=== PATIENT | male | born 1950 | race African-American/Black ===

== ENCOUNTER 2016-09-19 11:03 | Inpatient (IN) | payer OTHER ==
[2016-09-19 14:04] VITALS: BMI 18.7
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
[2016-09-19] MEDS ORDERED: MAG HYDROX/AL HYDROX/SIMETH 30 ML UNIT-DOSE CUP PO PRN (15:03)
[2016-09-19] MEDS ORDERED: diphenhydrAMINE HCL 50 MG CAPSULE PO PRN (15:03)
[2016-09-19] MEDS ORDERED: guaiFENesin/D-METHORPHAN HB 10 ML UNIT-DOSE CUPS PO PRN (15:03)
[2016-09-19] MEDS ORDERED: MENTHOL/PHENOL 1 EACH UD MM PRN (15:03)
[2016-09-19] MEDS ORDERED: IBUPROFEN 400 MG TABLET (FP) PO PRN (15:03)
[2016-09-19] MEDS ORDERED: LOPERAMIDE HCL 2 MG CAPSULE PO PRN (15:03)
[2016-09-19] MEDS ORDERED: chlordiazePOXIDE HCL 25 MG CAPSULE PO ONE (15:03)
[2016-09-19] MEDS ORDERED: ACETAMINOPHEN 325 MG TABLET (FP) PO PRN (15:03)
[2016-09-19] MEDS ORDERED: MAGNESIUM CITRATE 300 ML BOTTLE PO PRN (15:03)
[2016-09-19] MEDS ORDERED: MAGNESIUM HYDROX 2400MG/30ML ORAL SUSPENSION 30 ML CUP PO PRN (15:03)
[2016-09-19] MEDS ORDERED: chlordiazePOXIDE HCL 25 MG CAPSULE PO PRN (15:03)
[2016-09-19] MEDS ORDERED: P-EPHED 60MG/TRIPROLIDI 2.5MG TABLET PO PRN (15:03)
[2016-09-19] MEDS ORDERED: NICOTINE POLACRILEX 2 MG GUM BC PRN (15:03)
[2016-09-19] MEDS ORDERED: hydrOXYzine PAMOATE 50 MG CAPSULE (FP) PO PRN (15:03)
[2016-09-19] MEDS: chlordiazePOXIDE HCL 25 MG CAPSULE PO SCH ×2 (17:09→22:35)
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
[2016-09-19 21:13] LABS: URINE APPEARANCE CLEAR; URINE BILIRUBIN NEGATIVE (NEGATIVE); URINE BLOOD NEGATIVE (NEGATIVE); URINE COLOR YELLOW; URINE GLUCOSE (UA) NEGATIVE (NEGATIVE); URINE KETONE NEGATIVE (NEGATIVE); URINE LEUK ESTERASE NEGATIVE (NEGATIVE); URINE NITRITE NEGATIVE (NEGATIVE); URINE PROTEIN NEGATIVE (NEGATIVE); URINE UROBILINOGEN NEGATIVE mg/dL (0.2-1.0)
[2016-09-19] MEDS: THIAMINE HCL 100 MG TABLET (FP) PO SCH (22:35)
[2016-09-19] MEDS: QUEtiapine FUMARATE 50 MG TABLET PO SCH (22:35)
[2016-09-20] MEDS: chlordiazePOXIDE HCL 25 MG CAPSULE PO SCH ×4 (06:29→22:46)
[2016-09-20 10:05] LABS: MCH 33.1 pg (25.7-33.7); MCHC 33.9 g/dl (32.0-35.9); MEAN CELL VOLUME 97.6 fl (80-96); MEAN PLT VOLUME 7.7 fl (7.5-11.1); PLATELET COUNT 279 K/MM3 (134-434); RDW 14.6 % (11.9-15.9); WHITE BLOOD COUNT 3.6 K/mm3 (4.0-10.0)
[2016-09-20 10:25] LABS: ALBUMIN 3.5 g/dl (3.4-5.0); ALK PHOS 72 U/L (45-117); ANION GAP 6 (8-16); BILIRUBIN,TOTAL 0.4 mg/dL (0.2-1.0); CALCIUM 8.9 mg/dL (8.5-10.1); CO2 31 mmol/L (21-32); CREATININE 1.3 mg/dL (0.7-1.3); GLUCOSE,RANDOM 106 mg/dL (74-106); SGOT/AST 15 U/L (15-37); SGPT/ALT 12 U/L (12-78); TOT PROT 7.2 g/dl (6.4-8.2)
[2016-09-20] MEDS: PRENATAL VITAMINS W/ FOLIC ACID TABLET (FP) PO SCH (10:57)
[2016-09-20] MEDS: FLUoxetine HCL 20 MG CAPSULE (FP) PO SCH (10:57)
[2016-09-20] MEDS: NICOTINE 21 MG/24 HOURS TOPICAL PATCH TD SCH (10:57)
[2016-09-20] MEDS: TAMSULOSIN HCL 0.4 MG CAP.ER.24H (FP) PO SCH (10:57)
--- NOTE | 2016-09-20 11:06 | PN ---
[facility] CIWA - CIWA Score Nausea/Vomitin-Mild Nausea/No Vomiting Muscle Tremors: 4-Moderate,w/Arms Extend Anxiety: 3 Agitation: 3 Paroxysmal Sweats: 3 Orientation: 0-Oriented Tacttile Disturbances: 0-None Auditory Disturbances: 0-None Visual Disturbances: 0-None Headache: 0-None Present CIWA-Ar Total Score: 14 S Progress Note (SOAP) Subjective: Anxiety,tremors,sweating,interrupted sleep,restless. Objective: 09/20/16 11:04 Vital Signs - 8 hr 09/20/16 09/20/16 09/20/16 04:18 07:43 09:23 Temperature 96.9 F L Pulse Rate 65 81 Respiratory 18 16 20 Rate Blood Pressure 122/75 125/88 Laboratory Last Values WBC 3.6 K/mm3 (4.0-10.0) L 09/20/16 06:00 RBC 4.32 M/mm3 (4.00-5.60) 09/20/16 06:00 Hgb 14.3 GM/dL (11.7-16.9) 09/20/16 06:00 Hct 42.1 % (35.4-49) 09/20/16 06:00 MCV 97.6 fl (80-96) H 09/20/16 06:00 MCH 33.1 pg (25.7-33.7) 09/20/16 06:00 MCHC 33.9 g/dl (32.0-35.9) 09/20/16 06:00 RDW 14.6 % (11.9-15.9) 09/20/16 06:00 Plt Count 279 K/MM3 (134-434) 09/20/16 06:00 MPV 7.7 fl (7.5-11.1) 09/20/16 06:00 Sodium 142 mmol/L (136-145) 09/20/16 06:00 Potassium 3.7 mmol/L (3.5-5.1) 09/20/16 06:00 Chloride 105 mmol/L (98-107) 09/20/16 06:00 Carbon Dioxide 31 mmol/L (21-32) 09/20/16 06:00 Anion Gap 6 (8-16) L 09/20/16 06:00 BUN 11 mg/dL (7-18) 09/20/16 06:00 Creatinine 1.3 mg/dL (0.7-1.3) 09/20/16 06:00 Creat Clearance w eGFR 55.40 (>60) 09/20/16 06:00 Random Glucose 106 mg/dL (74-106) 09/20/16 06:00 Calcium 8.9 mg/dL (8.5-10.1) 09/20/16 06:00 Total Bilirubin 0.4 mg/dL (0.2-1.0) 09/20/16 06:00 AST 15 U/L (15-37) 09/20/16 06:00 ALT 12 U/L (12-78) 09/20/16 06:00 Alkaline Phosphatase 72 U/L (45-117) 09/20/16 06:00 Total Protein 7.2 g/dl (6.4-8.2) 09/20/16 06:00 Albumin 3.5 g/dl (3.4-5.0) 09/20/16 06:00 Urine Color Yellow 09/19/16 16:59 Urine Appearance Clear 09/19/16 16:59 Urine pH 5.0 (5.0-8.0) 09/19/16 16:59 Ur Specific [place] 1.015 (1.005-1.025) 09/19/16 16:59 Urine Protein Negative (NEGATIVE) 09/19/16 16:59 Urine Glucose (UA) Negative (NEGATIVE) 09/19/16 16:59 Urine Ketones Negative (NEGATIVE) 09/19/16 16:59 Urine Blood Negative (NEGATIVE) 09/19/16 16:59 Urine Nitrite Negative (NEGATIVE) 09/19/16 16:59 Urine Bilirubin Negative (NEGATIVE) 09/19/16 16:59 Urine Urobilinogen Negative mg/dL (0.2-1.0) 09/19/16 16:59 Ur Leukocyte Esterase Negative (NEGATIVE) 09/19/16 16:59 labs noted Assessment: 09/20/16 11:05 Withdrawal sx. Plan: Continue detox
[2016-09-20 12:26] LABS: HIV 1 & 2 AB NEGATIVE; HIV 1 AGp24 NEGATIVE
--- NOTE | 2016-09-20 15:38 | EKG ---
Test Reason : Blood Pressure : / mmHG Vent. Rate : 072 BPM Atrial Rate : 072 BPM P-R Int : 140 ms QRS Dur : 082 ms QT Int : 428 ms P-R-T Axes : 086 056 -56 degrees QTc Int : 468 ms NORMAL SINUS RHYTHM SEPTAL INFARCT , AGE UNDETERMINED ABNORMAL ECG NO PREVIOUS ECGS AVAILABLE Confirmed by JOANNE MATA MD ([id number]) on 09/20/2016 3:38:19 PM Referred By: Confirmed By:JOANNE MATA MD
[2016-09-20] MEDS: THIAMINE HCL 100 MG TABLET (FP) PO SCH (22:46)
[2016-09-20] MEDS: QUEtiapine FUMARATE 50 MG TABLET PO SCH (22:46)
[2016-09-21] MEDS: chlordiazePOXIDE HCL 25 MG CAPSULE PO SCH ×2 (06:01→10:32)
[2016-09-21] MEDS: NICOTINE 21 MG/24 HOURS TOPICAL PATCH TD SCH (10:32)
[2016-09-21] MEDS: TAMSULOSIN HCL 0.4 MG CAP.ER.24H (FP) PO SCH (10:32)
[2016-09-21] MEDS: FLUoxetine HCL 20 MG CAPSULE (FP) PO SCH (10:32)
[2016-09-21] MEDS: PRENATAL VITAMINS W/ FOLIC ACID TABLET (FP) PO SCH (10:32)
--- NOTE | 2016-09-21 12:09 | PN ---
[facility] CIWA - CIWA Score Nausea/Vomitin-No Nausea/No Vomiting Muscle Tremors: 4-Moderate,w/Arms Extend Anxiety: 2 Agitation: 2 Paroxysmal Sweats: 3 Orientation: 2-Disoriented Date<2 days Tacttile Disturbances: 0-None Auditory Disturbances: 2-Mild Harshness/Frighten Visual Disturbances: 0-None Headache: 2-Mild CIWA-Ar Total Score: 17 S Progress Note (SOAP) Subjective: Tremors, Body Aches, H/A, Constipation, Sweating. Objective: PT. A & O X 2 (DISORIENTED ABOUT DAY / DATE). PT. OBSERVED AMBULATING ON UNIT WITH ASSISTANCE OF A CANE. NO ACUTE DISTRESS. 09/21/16 12:07 Vital Signs Temperature 96.0 F L 09/21/16 10:47 Pulse Rate 91 H 09/21/16 10:47 Respiratory Rate 16 09/21/16 10:47 Blood Pressure 127/82 09/21/16 10:47 O2 Sat by Pulse Oximetry (%) Laboratory Tests 09/19/16 09/19/16 09/20/16 06:00 16:59 06:00 WBC 3.6 L RBC 4.32 Hgb 14.3 Hct 42.1 MCV 97.6 H MCH 33.1 MCHC 33.9 RDW 14.6 Plt Count 279 MPV 7.7 Sodium Potassium Chloride Carbon Dioxide Anion Gap BUN Creatinine Creat Clearance w eGFR Random Glucose Calcium Total Bilirubin AST ALT Alkaline Phosphatase Total Protein Albumin Urine Color Yellow Urine Appearance Clear Urine pH 5.0 Ur Specific [place] 1.015 Urine Protein Negative Urine Glucose (UA) Negative Urine Ketones Negative Urine Blood Negative Urine Nitrite Negative Urine Bilirubin Negative Urine Urobilinogen Negative Ur Leukocyte Esterase Negative RPR Titer HIV 1&2 Antibody Screen Negative HIV P24 Antigen Negative 09/20/16 09/20/16 06:00 06:00 WBC RBC Hgb Hct MCV MCH MCHC RDW Plt Count MPV Sodium 142 Potassium 3.7 Chloride 105 Carbon Dioxide 31 Anion Gap 6 L BUN 11 Creatinine 1.3 Creat Clearance w eGFR 55.40 Random Glucose 106 Calcium 8.9 Total Bilirubin 0.4 AST 15 ALT 12 Alkaline Phosphatase 72 Total Protein 7.2 Albumin 3.5 Urine Color Urine Appearance Urine pH Ur Specific [place] Urine Protein Urine Glucose (UA) Urine Ketones Urine Blood Urine Nitrite Urine Bilirubin Urine Urobilinogen Ur Leukocyte Esterase RPR Titer Nonreactive HIV 1&2 Antibody Screen HIV P24 Antigen LABS NOTED. Assessment: 09/21/16 12:08 WITHDRAWAL SYMPTOMS. Plan: CONTINUE DETOX.
[2016-09-21] MEDS: chlordiazePOXIDE 5 MG CAPSULE PO SCH ×2 (16:52→22:24)
[2016-09-21] MEDS: QUEtiapine FUMARATE 50 MG TABLET PO SCH (22:24)
[2016-09-21] MEDS: THIAMINE HCL 100 MG TABLET (FP) PO SCH (22:24)
[2016-09-22] MEDS: chlordiazePOXIDE 5 MG CAPSULE PO SCH ×2 (05:55→10:23)
[2016-09-22] MEDS: PRENATAL VITAMINS W/ FOLIC ACID TABLET (FP) PO SCH (10:23)
[2016-09-22] MEDS: FLUoxetine HCL 20 MG CAPSULE (FP) PO SCH (10:23)
[2016-09-22] MEDS: NICOTINE 21 MG/24 HOURS TOPICAL PATCH TD SCH (10:23)
[2016-09-22] MEDS: TAMSULOSIN HCL 0.4 MG CAP.ER.24H (FP) PO SCH (10:23)
--- NOTE | 2016-09-22 15:13 | PN ---
BHS Progress Note (SOAP) Subjective: Tremors, Body Aches, Constipation, H/A, Nausea, Sweating. Objective: PT. A & O X 3, OBSERVED AMBULATING ON UNIT WITH ASSISTANCE OF A CANE. NO ACUTE DISTRESS. 09/22/16 15:10 Vital Signs Temperature 97.0 F L 09/22/16 13:58 Pulse Rate 97 H 09/22/16 13:58 Respiratory Rate 20 09/22/16 13:58 Blood Pressure 126/88 09/22/16 13:58 O2 Sat by Pulse Oximetry (%) Laboratory Tests 09/19/16 09/19/16 09/20/16 06:00 16:59 06:00 WBC 3.6 L RBC 4.32 Hgb 14.3 Hct 42.1 MCV 97.6 H MCH 33.1 MCHC 33.9 RDW 14.6 Plt Count 279 MPV 7.7 Sodium Potassium Chloride Carbon Dioxide Anion Gap BUN Creatinine Creat Clearance w eGFR Random Glucose Calcium Total Bilirubin AST ALT Alkaline Phosphatase Total Protein Albumin Urine Color Yellow Urine Appearance Clear Urine pH 5.0 Ur Specific [place] 1.015 Urine Protein Negative Urine Glucose (UA) Negative Urine Ketones Negative Urine Blood Negative Urine Nitrite Negative Urine Bilirubin Negative Urine Urobilinogen Negative Ur Leukocyte Esterase Negative RPR Titer HIV 1&2 Antibody Screen Negative HIV P24 Antigen Negative 09/20/16 09/20/16 06:00 06:00 WBC RBC Hgb Hct MCV MCH MCHC RDW Plt Count MPV Sodium 142 Potassium 3.7 Chloride 105 Carbon Dioxide 31 Anion Gap 6 L BUN 11 Creatinine 1.3 Creat Clearance w eGFR 55.40 Random Glucose 106 Calcium 8.9 Total Bilirubin 0.4 AST 15 ALT 12 Alkaline Phosphatase 72 Total Protein 7.2 Albumin 3.5 Urine Color Urine Appearance Urine pH Ur Specific [place] Urine Protein Urine Glucose (UA) Urine Ketones Urine Blood Urine Nitrite Urine Bilirubin Urine Urobilinogen Ur Leukocyte Esterase RPR Titer Nonreactive HIV 1&2 Antibody Screen HIV P24 Antigen LABS NOTED. Assessment: 09/22/16 15:11 WITHDRAWAL SYMPTOMS. Plan: CONTINUE DETOX. PRN MOM FOR CONSTIPATION.
[2016-09-22] MEDS: chlordiazePOXIDE HCL 10 MG CAPSULE PO SCH ×2 (17:42→22:28)
[2016-09-22] MEDS: QUEtiapine FUMARATE 50 MG TABLET PO SCH (22:28)
[2016-09-22] MEDS: THIAMINE HCL 100 MG TABLET (FP) PO SCH (22:28)
[2016-09-23] MEDS: chlordiazePOXIDE HCL 10 MG CAPSULE PO SCH ×2 (05:47→10:36)
[2016-09-23 09:24] VITALS: BP 129/86; PULSE 56; TEMP 97.9
[2016-09-23] MEDS: NICOTINE 21 MG/24 HOURS TOPICAL PATCH TD SCH (10:36)
[2016-09-23] MEDS: PRENATAL VITAMINS W/ FOLIC ACID TABLET (FP) PO SCH (10:36)
[2016-09-23] MEDS: TAMSULOSIN HCL 0.4 MG CAP.ER.24H (FP) PO SCH (10:36)
[2016-09-23] MEDS: FLUoxetine HCL 20 MG CAPSULE (FP) PO SCH (10:36)
--- NOTE | 2016-09-23 12:46 | DS ---
[facility] Detox Discharge Summary Admission Date: 09/19/16 Discharge Date: 09/23/16 - History Present History: Alcohol Dependence Pertinent Past History: BPH Hepatitis C - Physical Exam Results Vital Signs: Vital Signs Temperature 97.9 F 09/23/16 09:23 Pulse Rate 56 L 09/23/16 09:23 Respiratory Rate 18 09/23/16 09:23 Blood Pressure 129/86 09/23/16 09:23 O2 Sat by Pulse Oximetry (%) Pertinent Admission Physical Exam Findings: Withdrawal symptoms Laboratory Tests 09/19/16 09/19/16 09/20/16 06:00 16:59 06:00 WBC 3.6 L RBC 4.32 Hgb 14.3 Hct 42.1 MCV 97.6 H MCH 33.1 MCHC 33.9 RDW 14.6 Plt Count 279 MPV 7.7 Sodium Potassium Chloride Carbon Dioxide Anion Gap BUN Creatinine Creat Clearance w eGFR Random Glucose Calcium Total Bilirubin AST ALT Alkaline Phosphatase Total Protein Albumin Urine Color Yellow Urine Appearance Clear Urine pH 5.0 Ur Specific [place] 1.015 Urine Protein Negative Urine Glucose (UA) Negative Urine Ketones Negative Urine Blood Negative Urine Nitrite Negative Urine Bilirubin Negative Urine Urobilinogen Negative Ur Leukocyte Esterase Negative RPR Titer HIV 1&2 Antibody Screen Negative HIV P24 Antigen Negative 09/20/16 09/20/16 06:00 06:00 WBC RBC Hgb Hct MCV MCH MCHC RDW Plt Count MPV Sodium 142 Potassium 3.7 Chloride 105 Carbon Dioxide 31 Anion Gap 6 L BUN 11 Creatinine 1.3 Creat Clearance w eGFR 55.40 Random Glucose 106 Calcium 8.9 Total Bilirubin 0.4 AST 15 ALT 12 Alkaline Phosphatase 72 Total Protein 7.2 Albumin 3.5 Urine Color Urine Appearance Urine pH Ur Specific [place] Urine Protein Urine Glucose (UA) Urine Ketones Urine Blood Urine Nitrite Urine Bilirubin Urine Urobilinogen Ur Leukocyte Esterase RPR Titer Nonreactive HIV 1&2 Antibody Screen HIV P24 Antigen Labs noted - Treatment Hospital Course: Detox Protocol Followed, Detoxed Safely, Responded well, Discharged Condition Good, Rehab Referral Accepted Patient has Accepted a Rehab Referral to: [facility] - Medication Discharge Medications: Ambulatory Orders Gabapentin [Neurontin] 800 mg PO BID 11/02/14 Quetiapine Fumarate [Seroquel -] 200 mg PO HS 11/02/14 Tamsulosin HCl [Flomax] 0.4 mg PO DAILY 11/02/14 Fluoxetine HCl [Prozac -] 60 mg PO DAILY 09/19/16 - Diagnosis (1) Alcohol dependence with uncomplicated withdrawal Status: Acute (2) Depressive disorder Status: Chronic (3) Nicotine dependence Status: Chronic Qualifiers: Nicotine product type: cigarettes Substance use status: uncomplicated Qualified Code(s): F17.210 - Nicotine dependence, cigarettes, uncomplicated (4) BPH (benign prostatic hyperplasia) Status: Chronic Qualifiers: Lower urinary tract symptom presence: symptoms present Lower urinary tract symptom detail: unspecified Qualified Code(s): N40.1 - Benign prostatic hyperplasia with lower urinary tract symptoms; R35.0 - Frequency of micturition (5) Bipolar disorder Status: Chronic (6) Hepatitis C Status: Chronic - AMA Did Patient Leave Against Medical Advice: No
== END 2016-09-23 11:06 | disposition other institution (70) | DRG 897 ==
LOC: YASAS 11:03 → Y3N 16:06
PROVIDERS: ADMIT Internal Medicine; ATTEND Internal Medicine
PROC: HZ2ZZZZ Detoxification Services for Substance Abuse Treatment (ICD-10-PCS; principal; 2016-09-19)
DX: F10.230 Alcohol dependence with withdrawal, uncomplicated (principal); F14.20 Cocaine dependence, uncomplicated; F17.210 Nicotine dependence, cigarettes, uncomplicated; F19.24 Other psychoactive substance dependence with psychoactive substance-induced mood disorder; F32.9 Major depressive disorder, single episode, unspecified; F31.9 Bipolar disorder, unspecified; N40.1 Benign prostatic hyperplasia with lower urinary tract symptoms; R35.0 Frequency of micturition; B18.2 Chronic viral hepatitis C; R26.2 Difficulty in walking, not elsewhere classified; Z99.89 Dependence on other enabling machines and devices; G47.00 Insomnia, unspecified; M25.561 Pain in right knee; Z91.5 Personal history of self-harm
CPT/HCPCS: 36415; 80053; 81003; 85027; 86593; 87389; 93005; 93010

== ENCOUNTER 2016-09-23 11:14 | Inpatient (IN) | payer OTHER ==
[2016-09-23] MEDS ORDERED: MENTHOL/PHENOL 1 EACH UD MM PRN (12:40)
[2016-09-23] MEDS ORDERED: guaiFENesin/D-METHORPHAN HB 10 ML UNIT-DOSE CUPS PO PRN (12:40)
[2016-09-23] MEDS ORDERED: MAGNESIUM HYDROX 2400MG/30ML ORAL SUSPENSION 30 ML CUP PO PRN (12:40)
[2016-09-23] MEDS ORDERED: MAGNESIUM CITRATE 300 ML BOTTLE PO PRN (12:40)
[2016-09-23] MEDS ORDERED: MAG HYDROX/AL HYDROX/SIMETH 30 ML UNIT-DOSE CUP PO PRN (12:40)
[2016-09-23] MEDS ORDERED: P-EPHED 60MG/TRIPROLIDI 2.5MG TABLET PO PRN (12:40)
[2016-09-23] MEDS ORDERED: NICOTINE POLACRILEX 2 MG GUM BUC PRN (12:40)
--- NOTE | 2016-09-23 12:43 | HP ---
[facility] Rehab Assess/Revision - Admission History Admitted to Rehab from: [facility] [place] Date of Admission to Rehab: 09/23/16 - Vital signs Vital Signs: VSS - Findings Detox History & Physical reviewed: Yes Concur with findings: Yes
[2016-09-23] MEDS: THIAMINE HCL 100 MG TABLET (FP) PO SCH (21:20)
[2016-09-23] MEDS: diphenhydrAMINE HCL 50 MG CAPSULE PO PRN (21:21)
[2016-09-23] MEDS ORDERED: QUEtiapine FUMARATE 50 MG TABLET PO SCH (22:00)
[2016-09-24] MEDS: PRENATAL VITAMINS W/ FOLIC ACID TABLET (FP) PO SCH (10:13)
[2016-09-24] MEDS: TAMSULOSIN HCL 0.4 MG CAP.ER.24H (FP) PO SCH (10:13)
[2016-09-24] MEDS: NICOTINE 21 MG/24 HOURS TOPICAL PATCH TD SCH (10:13)
[2016-09-24] MEDS: FLUoxetine HCL 20 MG CAPSULE (FP) PO SCH (10:13)
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
[2016-09-24] MEDS: THIAMINE HCL 100 MG TABLET (FP) PO SCH (21:26)
[2016-09-24] MEDS: QUEtiapine FUMARATE 200 MG TABLET PO SCH (21:26)
[2016-09-24] MEDS: IBUPROFEN 400 MG TABLET (FP) PO PRN (21:28)
[2016-09-25] MEDS: FLUoxetine HCL 20 MG CAPSULE (FP) PO SCH (10:40)
[2016-09-25] MEDS: TAMSULOSIN HCL 0.4 MG CAP.ER.24H (FP) PO SCH (10:40)
[2016-09-25] MEDS: PRENATAL VITAMINS W/ FOLIC ACID TABLET (FP) PO SCH (10:40)
[2016-09-25] MEDS: NICOTINE 21 MG/24 HOURS TOPICAL PATCH TD SCH (10:41)
[2016-09-25] MEDS: QUEtiapine FUMARATE 200 MG TABLET PO SCH (21:34)
[2016-09-25] MEDS: THIAMINE HCL 100 MG TABLET (FP) PO SCH (21:34)
[2016-09-26] MEDS: PRENATAL VITAMINS W/ FOLIC ACID TABLET (FP) PO SCH (10:06)
[2016-09-26] MEDS: FLUoxetine HCL 20 MG CAPSULE (FP) PO SCH (10:06)
[2016-09-26] MEDS: TAMSULOSIN HCL 0.4 MG CAP.ER.24H (FP) PO SCH (10:06)
[2016-09-26] MEDS: NICOTINE 21 MG/24 HOURS TOPICAL PATCH TD SCH (10:07)
[2016-09-26] MEDS: THIAMINE HCL 100 MG TABLET (FP) PO SCH (21:28)
[2016-09-26] MEDS: QUEtiapine FUMARATE 200 MG TABLET PO SCH (21:28)
[2016-09-26] MEDS: IBUPROFEN 400 MG TABLET (FP) PO PRN (21:29)
[2016-09-27] MEDS: FLUoxetine HCL 20 MG CAPSULE (FP) PO SCH (10:08)
[2016-09-27] MEDS: TAMSULOSIN HCL 0.4 MG CAP.ER.24H (FP) PO SCH (10:08)
[2016-09-27] MEDS: NICOTINE 21 MG/24 HOURS TOPICAL PATCH TD SCH (10:08)
[2016-09-27] MEDS: PRENATAL VITAMINS W/ FOLIC ACID TABLET (FP) PO SCH (10:08)
[2016-09-27] MEDS: THIAMINE HCL 100 MG TABLET (FP) PO SCH (21:38)
[2016-09-27] MEDS: QUEtiapine FUMARATE 200 MG TABLET PO SCH (21:38)
[2016-09-28] MEDS: PRENATAL VITAMINS W/ FOLIC ACID TABLET (FP) PO SCH (09:53)
[2016-09-28] MEDS: FLUoxetine HCL 20 MG CAPSULE (FP) PO SCH (09:53)
[2016-09-28] MEDS: TAMSULOSIN HCL 0.4 MG CAP.ER.24H (FP) PO SCH (09:53)
[2016-09-28] MEDS: NICOTINE 21 MG/24 HOURS TOPICAL PATCH TD SCH (09:54)
[2016-09-28] MEDS: THIAMINE HCL 100 MG TABLET (FP) PO SCH (21:25)
[2016-09-28] MEDS: QUEtiapine FUMARATE 200 MG TABLET PO SCH (21:25)
[2016-09-29] MEDS: TAMSULOSIN HCL 0.4 MG CAP.ER.24H (FP) PO SCH (06:50)
[2016-09-29] MEDS: PRENATAL VITAMINS W/ FOLIC ACID TABLET (FP) PO SCH (06:51)
[2016-09-29] MEDS: NICOTINE 21 MG/24 HOURS TOPICAL PATCH TD SCH (06:51)
[2016-09-29] MEDS: FLUoxetine HCL 20 MG CAPSULE (FP) PO SCH (09:56)
[2016-09-29] MEDS: THIAMINE HCL 100 MG TABLET (FP) PO SCH (21:07)
[2016-09-29] MEDS: QUEtiapine FUMARATE 200 MG TABLET PO SCH (21:07)
[2016-09-30] MEDS: TAMSULOSIN HCL 0.4 MG CAP.ER.24H (FP) PO SCH (06:31)
[2016-09-30] MEDS: NICOTINE 21 MG/24 HOURS TOPICAL PATCH TD SCH (06:31)
[2016-09-30] MEDS: PRENATAL VITAMINS W/ FOLIC ACID TABLET (FP) PO SCH (06:31)
[2016-09-30] MEDS: LOPERAMIDE HCL 2 MG CAPSULE PO PRN ×2 (06:32→13:14)
[2016-09-30] MEDS: FLUoxetine HCL 20 MG CAPSULE (FP) PO SCH (10:03)
[2016-09-30] MEDS: QUEtiapine FUMARATE 200 MG TABLET PO SCH (21:48)
[2016-09-30] MEDS: THIAMINE HCL 100 MG TABLET (FP) PO SCH (21:48)
[2016-10-01] MEDS: PRENATAL VITAMINS W/ FOLIC ACID TABLET (FP) PO SCH (06:22)
[2016-10-01] MEDS: NICOTINE 21 MG/24 HOURS TOPICAL PATCH TD SCH (06:22)
[2016-10-01] MEDS: TAMSULOSIN HCL 0.4 MG CAP.ER.24H (FP) PO SCH (06:22)
[2016-10-01] MEDS: FLUoxetine HCL 20 MG CAPSULE (FP) PO SCH (10:00)
[2016-10-01] MEDS: THIAMINE HCL 100 MG TABLET (FP) PO SCH (21:21)
[2016-10-01] MEDS: QUEtiapine FUMARATE 200 MG TABLET PO SCH (21:21)
[2016-10-02] MEDS: PRENATAL VITAMINS W/ FOLIC ACID TABLET (FP) PO SCH (06:30)
[2016-10-02] MEDS: TAMSULOSIN HCL 0.4 MG CAP.ER.24H (FP) PO SCH (06:31)
[2016-10-02] MEDS: NICOTINE 21 MG/24 HOURS TOPICAL PATCH TD SCH (06:31)
[2016-10-02] MEDS: FLUoxetine HCL 20 MG CAPSULE (FP) PO SCH (10:07)
[2016-10-02] MEDS: QUEtiapine FUMARATE 200 MG TABLET PO SCH (21:22)
[2016-10-02] MEDS: THIAMINE HCL 100 MG TABLET (FP) PO SCH (21:22)
[2016-10-03] MEDS: TAMSULOSIN HCL 0.4 MG CAP.ER.24H (FP) PO SCH (07:22)
[2016-10-03] MEDS: NICOTINE 21 MG/24 HOURS TOPICAL PATCH TD SCH (07:22)
[2016-10-03] MEDS: PRENATAL VITAMINS W/ FOLIC ACID TABLET (FP) PO SCH (07:22)
[2016-10-03] MEDS: FLUoxetine HCL 20 MG CAPSULE (FP) PO SCH (10:02)
[2016-10-03] MEDS: THIAMINE HCL 100 MG TABLET (FP) PO SCH (21:33)
[2016-10-03] MEDS: QUEtiapine FUMARATE 200 MG TABLET PO SCH (21:33)
[2016-10-04] MEDS: NICOTINE 21 MG/24 HOURS TOPICAL PATCH TD SCH (06:16)
[2016-10-04] MEDS: PRENATAL VITAMINS W/ FOLIC ACID TABLET (FP) PO SCH (06:16)
[2016-10-04] MEDS: TAMSULOSIN HCL 0.4 MG CAP.ER.24H (FP) PO SCH (06:16)
[2016-10-04] MEDS: FLUoxetine HCL 20 MG CAPSULE (FP) PO SCH (10:05)
[2016-10-04] MEDS: THIAMINE HCL 100 MG TABLET (FP) PO SCH (21:17)
[2016-10-04] MEDS: QUEtiapine FUMARATE 200 MG TABLET PO SCH (21:17)
[2016-10-05] MEDS: PRENATAL VITAMINS W/ FOLIC ACID TABLET (FP) PO SCH (06:17)
[2016-10-05] MEDS: TAMSULOSIN HCL 0.4 MG CAP.ER.24H (FP) PO SCH (06:17)
[2016-10-05] MEDS: NICOTINE 21 MG/24 HOURS TOPICAL PATCH TD SCH (06:18)
[2016-10-05] MEDS: ACETAMINOPHEN 325 MG TABLET (FP) PO PRN (06:19)
[2016-10-05] MEDS: FLUoxetine HCL 20 MG CAPSULE (FP) PO SCH (09:50)
[2016-10-05] MEDS: QUEtiapine FUMARATE 200 MG TABLET PO SCH (21:09)
[2016-10-05] MEDS: THIAMINE HCL 100 MG TABLET (FP) PO SCH (21:09)
[2016-10-06] MEDS: TAMSULOSIN HCL 0.4 MG CAP.ER.24H (FP) PO SCH (06:07)
[2016-10-06] MEDS: NICOTINE 21 MG/24 HOURS TOPICAL PATCH TD SCH (06:07)
[2016-10-06] MEDS: PRENATAL VITAMINS W/ FOLIC ACID TABLET (FP) PO SCH (06:07)
[2016-10-06] MEDS: FLUoxetine HCL 20 MG CAPSULE (FP) PO SCH (09:38)
[2016-10-06] MEDS: THIAMINE HCL 100 MG TABLET (FP) PO SCH (21:33)
[2016-10-06] MEDS: diphenhydrAMINE HCL 50 MG CAPSULE PO PRN (21:33)
[2016-10-06] MEDS: QUEtiapine FUMARATE 200 MG TABLET PO SCH (21:33)
[2016-10-07] MEDS: PRENATAL VITAMINS W/ FOLIC ACID TABLET (FP) PO SCH (06:40)
[2016-10-07] MEDS: TAMSULOSIN HCL 0.4 MG CAP.ER.24H (FP) PO SCH (06:40)
[2016-10-07] MEDS: NICOTINE 21 MG/24 HOURS TOPICAL PATCH TD SCH (06:40)
[2016-10-07] MEDS: FLUoxetine HCL 20 MG CAPSULE (FP) PO SCH (09:56)
[2016-10-07] MEDS: THIAMINE HCL 100 MG TABLET (FP) PO SCH (21:22)
[2016-10-07] MEDS: QUEtiapine FUMARATE 200 MG TABLET PO SCH (21:22)
[2016-10-07] MEDS: ACETAMINOPHEN 325 MG TABLET (FP) PO PRN (21:23)
[2016-10-08] MEDS: PRENATAL VITAMINS W/ FOLIC ACID TABLET (FP) PO SCH (06:12)
[2016-10-08] MEDS: TAMSULOSIN HCL 0.4 MG CAP.ER.24H (FP) PO SCH (06:12)
[2016-10-08] MEDS: NICOTINE 21 MG/24 HOURS TOPICAL PATCH TD SCH (06:12)
[2016-10-08] MEDS: FLUoxetine HCL 20 MG CAPSULE (FP) PO SCH (10:15)
[2016-10-08] MEDS: THIAMINE HCL 100 MG TABLET (FP) PO SCH (21:31)
[2016-10-08] MEDS: QUEtiapine FUMARATE 200 MG TABLET PO SCH (21:31)
[2016-10-09] MEDS: ACETAMINOPHEN 325 MG TABLET (FP) PO PRN ×2 (06:08→21:17)
[2016-10-09] MEDS: PRENATAL VITAMINS W/ FOLIC ACID TABLET (FP) PO SCH (06:08)
[2016-10-09] MEDS: TAMSULOSIN HCL 0.4 MG CAP.ER.24H (FP) PO SCH (06:08)
[2016-10-09] MEDS: NICOTINE 21 MG/24 HOURS TOPICAL PATCH TD SCH (06:09)
[2016-10-09] MEDS: FLUoxetine HCL 20 MG CAPSULE (FP) PO SCH (10:07)
[2016-10-09] MEDS: THIAMINE HCL 100 MG TABLET (FP) PO SCH (21:17)
[2016-10-09] MEDS: QUEtiapine FUMARATE 200 MG TABLET PO SCH (21:17)
[2016-10-10] MEDS: PRENATAL VITAMINS W/ FOLIC ACID TABLET (FP) PO SCH (06:04)
[2016-10-10] MEDS: NICOTINE 21 MG/24 HOURS TOPICAL PATCH TD SCH (06:05)
[2016-10-10] MEDS: TAMSULOSIN HCL 0.4 MG CAP.ER.24H (FP) PO SCH (06:05)
[2016-10-10] MEDS: ACETAMINOPHEN 325 MG TABLET (FP) PO PRN (08:36)
[2016-10-10] MEDS: FLUoxetine HCL 20 MG CAPSULE (FP) PO SCH (09:45)
[2016-10-10] MEDS ORDERED: GABAPENTIN 100 MG CAPSULE (FP) PO SCH (14:45)
[2016-10-10] MEDS: GABAPENTIN 300 MG CAPSULE (FP) PO SCH ×2 (14:57→21:22)
[2016-10-10] MEDS: QUEtiapine FUMARATE 200 MG TABLET PO SCH (21:22)
[2016-10-10] MEDS: THIAMINE HCL 100 MG TABLET (FP) PO SCH (21:22)
[2016-10-11] MEDS: PRENATAL VITAMINS W/ FOLIC ACID TABLET (FP) PO SCH (06:24)
[2016-10-11] MEDS: GABAPENTIN 300 MG CAPSULE (FP) PO SCH ×3 (06:24→21:59)
[2016-10-11] MEDS: NICOTINE 21 MG/24 HOURS TOPICAL PATCH TD SCH (06:24)
[2016-10-11] MEDS: TAMSULOSIN HCL 0.4 MG CAP.ER.24H (FP) PO SCH (06:24)
[2016-10-11] MEDS: FLUoxetine HCL 20 MG CAPSULE (FP) PO SCH (09:54)
[2016-10-11] MEDS: IBUPROFEN 400 MG TABLET (FP) PO PRN (09:55)
[2016-10-11] MEDS ORDERED: GABAPENTIN 100 MG CAPSULE (FP) PO SCH (10:00)
[2016-10-11] MEDS: QUEtiapine FUMARATE 200 MG TABLET PO SCH (21:59)
[2016-10-11] MEDS: THIAMINE HCL 100 MG TABLET (FP) PO SCH (21:59)
[2016-10-12] MEDS: TAMSULOSIN HCL 0.4 MG CAP.ER.24H (FP) PO SCH (06:10)
[2016-10-12] MEDS: GABAPENTIN 300 MG CAPSULE (FP) PO SCH ×3 (06:10→21:16)
[2016-10-12] MEDS: PRENATAL VITAMINS W/ FOLIC ACID TABLET (FP) PO SCH (06:10)
[2016-10-12] MEDS: NICOTINE 21 MG/24 HOURS TOPICAL PATCH TD SCH (06:31)
[2016-10-12] MEDS: FLUoxetine HCL 20 MG CAPSULE (FP) PO SCH (09:55)
[2016-10-12] MEDS: THIAMINE HCL 100 MG TABLET (FP) PO SCH (21:15)
[2016-10-12] MEDS: QUEtiapine FUMARATE 200 MG TABLET PO SCH (21:16)
[2016-10-13] MEDS: PRENATAL VITAMINS W/ FOLIC ACID TABLET (FP) PO SCH (06:37)
[2016-10-13] MEDS: TAMSULOSIN HCL 0.4 MG CAP.ER.24H (FP) PO SCH (06:37)
[2016-10-13] MEDS: GABAPENTIN 300 MG CAPSULE (FP) PO SCH ×3 (06:37→21:15)
[2016-10-13] MEDS: NICOTINE 21 MG/24 HOURS TOPICAL PATCH TD SCH (06:38)
[2016-10-13] MEDS: FLUoxetine HCL 20 MG CAPSULE (FP) PO SCH (09:53)
[2016-10-13] MEDS: QUEtiapine FUMARATE 200 MG TABLET PO SCH (21:15)
[2016-10-13] MEDS: THIAMINE HCL 100 MG TABLET (FP) PO SCH (21:15)
[2016-10-14] MEDS: NICOTINE 21 MG/24 HOURS TOPICAL PATCH TD SCH (06:26)
[2016-10-14] MEDS: GABAPENTIN 300 MG CAPSULE (FP) PO SCH ×3 (06:26→21:12)
[2016-10-14] MEDS: TAMSULOSIN HCL 0.4 MG CAP.ER.24H (FP) PO SCH (06:26)
[2016-10-14] MEDS: PRENATAL VITAMINS W/ FOLIC ACID TABLET (FP) PO SCH (06:26)
[2016-10-14] MEDS: FLUoxetine HCL 20 MG CAPSULE (FP) PO SCH (09:59)
[2016-10-14] MEDS: IBUPROFEN 400 MG TABLET (FP) PO PRN ×2 (10:00→21:13)
[2016-10-14] MEDS: QUEtiapine FUMARATE 200 MG TABLET PO SCH (21:12)
[2016-10-14] MEDS: THIAMINE HCL 100 MG TABLET (FP) PO SCH (21:12)
[2016-10-15] MEDS: NICOTINE 21 MG/24 HOURS TOPICAL PATCH TD SCH (06:29)
[2016-10-15] MEDS: GABAPENTIN 300 MG CAPSULE (FP) PO SCH ×3 (06:29→21:16)
[2016-10-15] MEDS: PRENATAL VITAMINS W/ FOLIC ACID TABLET (FP) PO SCH (06:29)
[2016-10-15] MEDS: TAMSULOSIN HCL 0.4 MG CAP.ER.24H (FP) PO SCH (06:29)
[2016-10-15] MEDS: FLUoxetine HCL 20 MG CAPSULE (FP) PO SCH (09:56)
[2016-10-15] MEDS: THIAMINE HCL 100 MG TABLET (FP) PO SCH (21:16)
[2016-10-15] MEDS: QUEtiapine FUMARATE 200 MG TABLET PO SCH (21:16)
[2016-10-15] MEDS: IBUPROFEN 400 MG TABLET (FP) PO PRN (21:17)
[2016-10-16] MEDS: PRENATAL VITAMINS W/ FOLIC ACID TABLET (FP) PO SCH (06:27)
[2016-10-16] MEDS: TAMSULOSIN HCL 0.4 MG CAP.ER.24H (FP) PO SCH (06:27)
[2016-10-16] MEDS: GABAPENTIN 300 MG CAPSULE (FP) PO SCH ×3 (06:27→21:17)
[2016-10-16] MEDS: NICOTINE 21 MG/24 HOURS TOPICAL PATCH TD SCH (06:28)
[2016-10-16] MEDS: FLUoxetine HCL 20 MG CAPSULE (FP) PO SCH (10:09)
[2016-10-16] MEDS: THIAMINE HCL 100 MG TABLET (FP) PO SCH (21:17)
[2016-10-16] MEDS: IBUPROFEN 400 MG TABLET (FP) PO PRN (21:17)
[2016-10-16] MEDS: QUEtiapine FUMARATE 200 MG TABLET PO SCH (21:17)
[2016-10-17] MEDS: NICOTINE 21 MG/24 HOURS TOPICAL PATCH TD SCH (06:12)
[2016-10-17] MEDS: GABAPENTIN 300 MG CAPSULE (FP) PO SCH (06:12)
[2016-10-17] MEDS: TAMSULOSIN HCL 0.4 MG CAP.ER.24H (FP) PO SCH (06:12)
[2016-10-17] MEDS: PRENATAL VITAMINS W/ FOLIC ACID TABLET (FP) PO SCH (06:12)
[2016-10-17 06:44] VITALS: BP 128/85; PULSE 82; TEMP 97.8
--- NOTE | 2016-10-17 09:41 | PN ---
Psychiatric Progress Note Vital Signs: Vital Signs Period Temp Pulse Resp BP Sys/Canseco Pulse Ox Last 24 Hr 97.8 F 82 18-18 128/85 Date of Session: 10/17/16 Chief Complaint:: discharge visit HPI: Patient has addressed alcohol,cocaine dependence comorbid MDD. ROS: BPH medically managed. Hep C. Current Medications: Active Medications Generic Name Dose Route Start Last Admin Trade Name Freq PRN Reason Stop Dose Admin Acetaminophen 650 mg 09/23/16 12:40 10/10/16 08:36 Tylenol - PO 650 mg Q4H PRN Administration FEVER OR PAIN Al Hydroxide/Mg Hydroxide 30 ml 09/23/16 12:40 Mylanta Oral Suspension - PO Q6H PRN DYSPEPSIA Diphenhydramine HCl 50 mg 09/23/16 12:40 10/06/16 21:33 Benadryl - PO 50 mg HSMR1 PRN Administration FOR ITCHING Eucalyptus/Menthol/Phenol/Sorbitol 1 each 09/23/16 12:40 Cepastat Lozenge - MM Q4H PRN SORE THROAT Fluoxetine HCl 20 mg 09/24/16 10:00 10/16/16 10:09 Prozac - PO 20 mg DAILY MARCELINO Administration Gabapentin 300 mg 10/10/16 15:00 10/17/16 06:12 Neurontin - PO 300 mg TID MARCELINO Administration Guaifenesin 10 ml 09/23/16 12:40 Robitussin Dm - PO Q6H PRN COUGH Ibuprofen 400 mg 09/23/16 12:40 10/16/16 21:17 Motrin - PO 400 mg Q6H PRN Administration PAIN Loperamide HCl 4 mg 09/23/16 12:40 09/30/16 13:14 Imodium - PO 4 mg Q6H PRN Administration DIARRHEA Magnesium Hydroxide 30 ml 09/23/16 12:40 Milk Of Magnesia - PO DAILY PRN CONSTIPATION Nicotine 21 mg 09/29/16 06:00 10/17/16 06:12 Nicoderm Patch - TD Not Given DAILY@0600 [facility] Nicotine Polacrilex 2 mg 09/23/16 12:40 Nicorette Gum - BUC Q2H PRN NICOTINE REPLACEMENT RX Multivit/Folic Acid/Iron 1 tab 09/29/16 06:00 10/17/16 06:12 Vitamins (Sjr) - PO 1 tab DAILY@0600 MARCELINO Administration Pseudoephedrine/Triprolidine 1 combo 09/23/16 12:40 Actifed - PO TID PRN NASAL CONGESTION Quetiapine Fumarate 200 mg 09/24/16 22:00 10/16/16 21:17 Seroquel - PO 200 mg HS MARCELINO Administration Tamsulosin HCl 0.4 mg 09/29/16 06:00 10/17/16 06:12 Flomax - PO 0.4 mg DAILY@0600 MARCELINO Administration Thiamine HCl 100 mg 09/23/16 22:00 10/16/16 21:17 Vitamin B1 - PO 100 mg HS MARCELINO Administration Current Side Effect: No Lab tests ordered: No Lab tests reviewed: Yes Provider note:: Patient has completed today his treatment and met his golas, will continue to address his issues at [facility] outpatient treatment program.Patient gained insights into importnace of changing attitudes for the utiliation of supports to prevent relapses.He was educated on his addiction, implications and consequences on his physical and mental health, the importance to maintain sobriety, educated on smoking cessation. Medications Seroquel and Prozac well tolerated , patient reports he is less anxious, mood is stable and sleep improved. Scripts provided for 30 days. Supportive psychotherapy provided , patient is stable for discharge today Total face to face time:: 25 Mental Status Exam - Mental Status Exam Alert and Oriented to: Time, Place, Person Cognitive Function: Good Patient Appearance: Well Groomed Mood: Hopeful Affect: Appropriate, Mood Congruent Patient Behavior: Appropriate, Cooperative Speech Pattern: Clear, Appropriate Voice Loudness: Normal Thought Process: Intact, Goal Oriented Thought Disorder: Not Present Hallucinations: Denies Suicidal Ideation: Denies Homicidal Ideation: Denies Insight/Judgement: Fair Sleep: Well Appetite: Good Muscle strength/Tone: Normal Gait/Station: Normal Psychiatric Treatment Plan - Problem List (1) Alcohol dependence Current Visit: Yes (2) BPH (benign prostatic hyperplasia) Current Visit: Yes Qualifiers: Lower urinary tract symptom presence: symptoms present Lower urinary tract symptom detail: unspecified Qualified Code(s): N40.1 - Benign prostatic hyperplasia with lower urinary tract symptoms; R35.0 - Frequency of micturition (3) Cocaine dependence Current Visit: Yes Qualifiers: Substance use status: uncomplicated Qualified Code(s): F14.20 - Cocaine dependence, uncomplicated (4) MDD (major depressive disorder) Current Visit: Yes (5) Hepatitis C Current Visit: Yes
[2016-10-17] MEDS: FLUoxetine HCL 20 MG CAPSULE (FP) PO SCH (10:05)
== END 2016-10-17 11:00 | disposition home or self-care (01) | DRG 895 ==
LOC: YASAS 11:14 → Y5N 11:16
PROVIDERS: ADMIT Psychiatry & Neurology Psychiatry; ATTEND Psychiatry & Neurology Psychiatry
PROC: HZ42ZZZ Group Counseling for Substance Abuse Treatment, Cognitive-Behavioral (ICD-10-PCS; principal; 2016-09-23)
DX: F10.20 Alcohol dependence, uncomplicated (principal); F14.20 Cocaine dependence, uncomplicated; F33.9 Major depressive disorder, recurrent, unspecified; F19.24 Other psychoactive substance dependence with psychoactive substance-induced mood disorder; N40.1 Benign prostatic hyperplasia with lower urinary tract symptoms; R35.0 Frequency of micturition; B18.2 Chronic viral hepatitis C

== ENCOUNTER 2017-12-10 13:58 | Inpatient (IN) | payer OTHER ==
[2017-12-10 14:53] VITALS: BMI 21.1
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
[2017-12-10] MEDS ORDERED: MENTHOL/PHENOL 1 EACH UD MM PRN (17:54)
[2017-12-10] MEDS ORDERED: IBUPROFEN 400 MG TABLET (FP) PO PRN (17:54)
[2017-12-10] MEDS ORDERED: MAGNESIUM CITRATE 300 ML BOTTLE PO PRN (17:54)
[2017-12-10] MEDS ORDERED: chlordiazePOXIDE HCL 25 MG CAPSULE PO PRN (17:54)
[2017-12-10] MEDS ORDERED: MAG HYDROX/AL HYDROX/SIMETH 30 ML UNIT-DOSE CUP PO PRN (17:54)
[2017-12-10] MEDS ORDERED: NICOTINE POLACRILEX 2 MG GUM BC PRN (17:54)
[2017-12-10] MEDS ORDERED: MAGNESIUM HYDROX 2400MG/30ML ORAL SUSPENSION 30 ML CUP PO PRN (17:54)
[2017-12-10] MEDS ORDERED: LOPERAMIDE HCL 2 MG CAPSULE PO PRN (17:54)
[2017-12-10] MEDS ORDERED: chlordiazePOXIDE HCL 25 MG CAPSULE PO ONE (19:00)
[2017-12-10] MEDS: THIAMINE HCL 100 MG TABLET (FP) PO SCH (21:21)
[2017-12-10] MEDS: chlordiazePOXIDE HCL 25 MG CAPSULE PO SCH (22:03)
[2017-12-10] MEDS: MELATONIN 5 MG TABLETS PO PRN (22:03)
[2017-12-11 01:29] LABS: URINE APPEARANCE SLCLOUDY; URINE BILIRUBIN NEGATIVE (<2.0 mg/dL); URINE COLOR YELLOW; URINE GLUCOSE (UA) NEGATIVE (NEGATIVE); URINE KETONE NEGATIVE (NEGATIVE); URINE LEUK ESTERASE NEGATIVE (NEGATIVE); URINE NITRITE NEGATIVE (NEGATIVE); URINE PROTEIN NEGATIVE (NEGATIVE); URINE UROBILINOGEN NEGATIVE mg/dL (0.2-1.0)
[2017-12-11] MEDS: chlordiazePOXIDE HCL 25 MG CAPSULE PO SCH ×4 (05:06→22:10)
[2017-12-11] MEDS: TAMSULOSIN HCL 0.4 MG CAP PO SCH (09:30)
--- NOTE | 2017-12-11 09:55 | EKG ---
Test Reason : Blood Pressure : / mmHG Vent. Rate : 071 BPM Atrial Rate : 071 BPM P-R Int : 138 ms QRS Dur : 080 ms QT Int : 408 ms P-R-T Axes : 078 037 021 degrees QTc Int : 443 ms POOR DATA QUALITY, INTERPRETATION MAY BE ADVERSELY AFFECTED NORMAL SINUS RHYTHM SEPTAL INFARCT (CITED ON OR BEFORE 19-SEP-2016) ABNORMAL ECG WHEN COMPARED WITH ECG OF 19-SEP-2016 16:15, NONSPECIFIC T WAVE ABNORMALITY HAS REPLACED INVERTED T WAVES IN INFERIOR LEADS Confirmed by ELVIE TRAORE, BRIE ([id number]) on 12/11/2017 9:55:03 AM Referred By: Confirmed By:BRIE BERMEO MD
[2017-12-11] MEDS: PRENATAL VITAMINS W/ FOLIC ACID TABLET (FP) PO SCH (10:02)
[2017-12-11] MEDS: CLOPIDOGREL BISULFATE 75 MG TABLET (FP) PO SCH (10:02)
[2017-12-11] MEDS: PANTOPRAZOLE 20 MG TABLET (FP) PO SCH (10:02)
[2017-12-11 10:04] LABS: HEMATOCRIT 41.3 % (35.4-49); MCH 32.8 pg (25.7-33.7); MCHC 33.8 g/dl (32.0-35.9); MEAN CELL VOLUME 97.1 fl (80-96); MEAN PLT VOLUME 7.2 fl (7.5-11.1); PLATELET COUNT 295 K/MM3 (134-434); RBC 4.26 M/mm3 (4.00-5.60); RDW 16.2 % (11.9-15.9); WHITE BLOOD COUNT 5.2 K/mm3 (4.0-10.0)
[2017-12-11 10:39] LABS: ALBUMIN 3.4 g/dl (3.4-5.0); ALK PHOS 56 U/L (45-117); ANION GAP 7 MMOL/L (8-16); BILIRUBIN,TOTAL 0.4 mg/dL (0.2-1); BLOOD UREA NITROGEN 19 mg/dL (7-18); CALCIUM 8.6 mg/dL (8.5-10.1); CHLORIDE 107 mmol/L (98-107); CO2 28 mmol/L (21-32); GLUCOSE,RANDOM 61 mg/dL (74-106); POTASSIUM 5.2 mmol/L (3.5-5.1); SGOT/AST 11 U/L (15-37); SGPT/ALT 18 U/L (13-61); SODIUM 142 mmol/L (136-145); TOT PROT 6.8 g/dl (6.4-8.2)
--- NOTE | 2017-12-11 12:33 | PN ---
S CIWA - CIWA Score Nausea/Vomitin Muscle Tremors: 4-Moderate,w/Arms Extend Anxiety: 4-Mod. Anxious/Guarded Agitation: 4-Moderately Restless Paroxysmal Sweats: 3 Orientation: 0-Oriented Tacttile Disturbances: 0-None Auditory Disturbances: 0-None Visual Disturbances: 0-None Headache: 0-None Present CIWA-Ar Total Score: 17 BHS Progress Note (SOAP) Subjective: Tremor, sweating, interrupted sleep Objective: 12/11/17 12:30 Last Vital Signs Temp Pulse Resp BP Pulse Ox 97.6 F 72 18 115/66 12/11/17 09:08 12/11/17 09:08 12/11/17 09:08 12/11/17 09:08 Laboratory Tests 12/10/17 12/11/17 12/11/17 22:56 07:00 07:00 WBC 5.2 RBC 4.26 Hgb 14.0 Hct 41.3 MCV 97.1 H MCH 32.8 MCHC 33.8 RDW 16.2 H Plt Count 295 MPV 7.2 L Sodium 142 Potassium 5.2 H Chloride 107 Carbon Dioxide 28 Anion Gap 7 L BUN 19 H Creatinine 1.0 Creat Clearance w eGFR > 60 Random Glucose 61 L Calcium 8.6 Total Bilirubin 0.4 AST 11 L ALT 18 Alkaline Phosphatase 56 Total Protein 6.8 Albumin 3.4 Urine Color Yellow Urine Appearance Slcloudy Urine pH 7.0 D Ur Specific [place] 1.013 Urine Protein Negative Urine Glucose (UA) Negative Urine Ketones Negative Urine Blood Negative Urine Nitrite Negative Urine Bilirubin Negative Urine Urobilinogen Negative Ur Leukocyte Esterase Negative RPR Titer HIV 1&2 Antibody Screen HIV P24 Antigen 12/11/17 12/11/17 07:00 07:00 WBC RBC Hgb Hct MCV MCH MCHC RDW Plt Count MPV Sodium Potassium Chloride Carbon Dioxide Anion Gap BUN Creatinine Creat Clearance w eGFR Random Glucose Calcium Total Bilirubin AST ALT Alkaline Phosphatase Total Protein Albumin Urine Color Urine Appearance Urine pH Ur Specific [place] Urine Protein Urine Glucose (UA) Urine Ketones Urine Blood Urine Nitrite Urine Bilirubin Urine Urobilinogen Ur Leukocyte Esterase RPR Titer Nonreactive HIV 1&2 Antibody Screen Negative HIV P24 Antigen Negative Labs reviewed: Ever 5.2 Assessment: 12/11/17 12:31 Withdrawal symptoms Noted with mild hyperkalemia Plan: Continue detox Encouraged PO water intake Hyperkalemia, mild: repeat serum K level in AM
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
[2017-12-11] MEDS: VITAMINS A AND D TOPICAL OINTMENT 60 GM TUBE TP SCH ×2 (12:56→17:35)
[2017-12-11] MEDS: THIAMINE HCL 100 MG TABLET (FP) PO SCH (22:10)
[2017-12-11] MEDS: QUEtiapine FUMARATE 100 MG TABLET (FP) PO SCH (22:10)
[2017-12-12] MEDS: VITAMINS A AND D TOPICAL OINTMENT 60 GM TUBE TP SCH ×5 (02:57→23:10)
[2017-12-12] MEDS: chlordiazePOXIDE HCL 25 MG CAPSULE PO SCH ×3 (05:34→17:32)
[2017-12-12] MEDS: ACETAMINOPHEN 325 MG TABLET (FP) PO PRN ×3 (06:12→17:33)
--- NOTE | 2017-12-12 09:51 | PN ---
[facility] CIWA - CIWA Score Nausea/Vomitin-No Nausea/No Vomiting Muscle Tremors: 2 Anxiety: 2 Agitation: 0-Normal Activity Paroxysmal Sweats: 3 Orientation: 0-Oriented Tacttile Disturbances: 0-None Auditory Disturbances: 0-None Visual Disturbances: 0-None Headache: 0-None Present CIWA-Ar Total Score: 7 BHS Progress Note (SOAP) Subjective: PATIENT C/O SHAKES, SWEATING AND ANXIETY Objective: 12/12/17 09:49 Vital Signs Temperature 97.6 F 12/12/17 09:09 Pulse Rate 80 12/12/17 09:09 Respiratory Rate 18 12/12/17 09:09 Blood Pressure 105/63 12/12/17 09:09 O2 Sat by Pulse Oximetry (%) Laboratory Tests 12/10/17 12/11/17 12/11/17 22:56 07:00 07:00 WBC 5.2 RBC 4.26 Hgb 14.0 Hct 41.3 MCV 97.1 H MCH 32.8 MCHC 33.8 RDW 16.2 H Plt Count 295 MPV 7.2 L Sodium 142 Potassium 5.2 H Chloride 107 Carbon Dioxide 28 Anion Gap 7 L BUN 19 H Creatinine 1.0 Creat Clearance w eGFR > 60 Random Glucose 61 L Calcium 8.6 Total Bilirubin 0.4 AST 11 L ALT 18 Alkaline Phosphatase 56 Total Protein 6.8 Albumin 3.4 Urine Color Yellow Urine Appearance Slcloudy Urine pH 7.0 D Ur Specific [place] 1.013 Urine Protein Negative Urine Glucose (UA) Negative Urine Ketones Negative Urine Blood Negative Urine Nitrite Negative Urine Bilirubin Negative Urine Urobilinogen Negative Ur Leukocyte Esterase Negative RPR Titer HIV 1&2 Antibody Screen HIV P24 Antigen 12/11/17 12/11/17 07:00 07:00 WBC RBC Hgb Hct MCV MCH MCHC RDW Plt Count MPV Sodium Potassium Chloride Carbon Dioxide Anion Gap BUN Creatinine Creat Clearance w eGFR Random Glucose Calcium Total Bilirubin AST ALT Alkaline Phosphatase Total Protein Albumin Urine Color Urine Appearance Urine pH Ur Specific [place] Urine Protein Urine Glucose (UA) Urine Ketones Urine Blood Urine Nitrite Urine Bilirubin Urine Urobilinogen Ur Leukocyte Esterase RPR Titer Nonreactive HIV 1&2 Antibody Screen Negative HIV P24 Antigen Negative PE: SKIN WARM AND MOIST CAR S1S2 RESP CTA BL EXT FULL ROM, MILD TREMORS AMB AD CIRO ALERT AND ORIENTED X 3 Assessment: 12/12/17 09:50 WITHDRAWAL SX Plan: CONTINUE DETOX ORDERED ENCOURAGE ORAL FLUIDS REPEAT POTASSIUM LEVEL PENDING CONTINUE TO MONITOR CLINICALLY
[2017-12-12] MEDS: PRENATAL VITAMINS W/ FOLIC ACID TABLET (FP) PO SCH (10:04)
[2017-12-12] MEDS: CLOPIDOGREL BISULFATE 75 MG TABLET (FP) PO SCH (10:05)
[2017-12-12] MEDS: PANTOPRAZOLE 20 MG TABLET (FP) PO SCH (10:05)
[2017-12-12] MEDS: TAMSULOSIN HCL 0.4 MG CAP PO SCH (10:05)
[2017-12-12] MEDS ORDERED: BRIMONIDINE TARTRATE 0.2% OPHTHALMIC 5 ML BOTTLE OD SCH (14:00)
[2017-12-12] MEDS ORDERED: LATANOPROST 0.005% OPHTH SOLN 2.5ML BOTTLE OD SCH (22:00)
[2017-12-12] MEDS: THIAMINE HCL 100 MG TABLET (FP) PO SCH (22:09)
[2017-12-12] MEDS: QUEtiapine FUMARATE 100 MG TABLET (FP) PO SCH (22:09)
[2017-12-12] MEDS: chlordiazePOXIDE 5 MG CAPSULE PO SCH (22:09)
[2017-12-12] MEDS: MELATONIN 5 MG TABLETS PO PRN (22:10)
[2017-12-13] MEDS: chlordiazePOXIDE 5 MG CAPSULE PO SCH ×2 (05:15→10:34)
[2017-12-13] MEDS: ACETAMINOPHEN 325 MG TABLET (FP) PO PRN (05:16)
[2017-12-13] MEDS: VITAMINS A AND D TOPICAL OINTMENT 60 GM TUBE TP SCH ×2 (05:16→13:18)
[2017-12-13 06:12] VITALS: TEMP 97.9
[2017-12-13] MEDS ORDERED: chlordiazePOXIDE HCL 10 MG CAPSULE PO ONE ×2 (08:57→09:15)
[2017-12-13] MEDS: PRENATAL VITAMINS W/ FOLIC ACID TABLET (FP) PO SCH (09:01)
[2017-12-13] MEDS: PANTOPRAZOLE 20 MG TABLET (FP) PO SCH (09:02)
[2017-12-13] MEDS: TAMSULOSIN HCL 0.4 MG CAP PO SCH (09:02)
[2017-12-13] MEDS: CLOPIDOGREL BISULFATE 75 MG TABLET (FP) PO SCH (09:02)
[2017-12-13 09:25] VITALS: BP 99/69; PULSE 84
[2017-12-13] MEDS ORDERED: TIMOLOL 0.5% OPHTHALMIC SOL 5 ML BOTTLE OD SCH (10:00)
--- NOTE | 2017-12-13 10:04 | DS ---
[facility] Detox Discharge Summary Admission Date: 12/10/17 Discharge Date: 12/13/17 - History Present History: Alcohol Dependence, Cannabis Dependence, Cocaine Dependence - Physical Exam Results Vital Signs: Vital Signs Temperature 97.9 F 12/13/17 09:24 Pulse Rate 84 12/13/17 09:24 Respiratory Rate 17 12/13/17 09:24 Blood Pressure 99/69 12/13/17 09:24 O2 Sat by Pulse Oximetry (%) Pertinent Admission Physical Exam Findings: PATIENT COMPLETED DETOX WITHOUT ADVERSE EVENT. PATIENT MEDICALLY STABLE. DENIES SI/HI. PATIENT ALERT AND ORIENTED X 3, SKIN WARM AND DRY, AMB AD CRIO, EXT FULL ROM. PATIENT ACCEPTED REHAB REFERRAL TO [facility]. ENCOURAGED TO COMPLETE REHAB TO PREVENT RELAPSE. PATIENT GIVEN D/C INSTRUCTIONS BY STAFF. - Treatment Hospital Course: Detox Protocol Followed, Detoxed Safely, Responded well, Discharged Condition Good, Rehab Referral Accepted Patient has Accepted a Rehab Referral to: [facility] - Medication Discharge Medications: Ambulatory Orders Gabapentin [Neurontin -] 300 mg PO TID 30 Days cap 10/16/16 Tamsulosin HCl [Flomax -] 0.4 mg PO DAILY 30 Days cap 10/16/16 Clopidogrel Bisulfate [Clopidogrel] 75 mg PO DAILY 12/10/17 Metoprolol Succinate [Toprol Xl -] 50 mg PO DAILY 12/10/17 Omeprazole 20 mg PO DAILY 12/10/17 Quetiapine Fumarate [Seroquel -] 100 mg PO HS 12/10/17 - Diagnosis (1) Alcohol dependence with uncomplicated withdrawal Current Visit: Yes Status: Resolved - AMA Did Patient Leave Against Medical Advice: No
[2017-12-13] MEDS ORDERED: chlordiazePOXIDE HCL 10 MG CAPSULE PO SCH (23:00)
== END 2017-12-13 13:04 | disposition other institution (70) | DRG 897 ==
LOC: YASAS 13:58 → Y3N 18:50
PROC: HZ2ZZZZ Detoxification Services for Substance Abuse Treatment (ICD-10-PCS; principal; 2017-12-10)
DX: F10.230 Alcohol dependence with withdrawal, uncomplicated (principal); F14.20 Cocaine dependence, uncomplicated; F12.20 Cannabis dependence, uncomplicated; F17.210 Nicotine dependence, cigarettes, uncomplicated; F19.24 Other psychoactive substance dependence with psychoactive substance-induced mood disorder; F32.9 Major depressive disorder, single episode, unspecified; G47.00 Insomnia, unspecified; E87.5 Hyperkalemia; J45.909 Unspecified asthma, uncomplicated; N40.0 Benign prostatic hyperplasia without lower urinary tract symptoms; L98.8 Other specified disorders of the skin and subcutaneous tissue; Z86.19 Personal history of other infectious and parasitic diseases; M89.8X9 Other specified disorders of bone, unspecified site; Z91.19 Patient's noncompliance with other medical treatment and regimen
CPT/HCPCS: 36415; 80053; 81003; 84132; 85027; 86593; 87389; 93005; 93010

== ENCOUNTER 2017-12-13 13:14 | Inpatient (IN) | payer OTHER ==
[2017-12-13] MEDS ORDERED: IBUPROFEN 400 MG TABLET (FP) PO PRN (15:41)
[2017-12-13] MEDS ORDERED: guaiFENesin/D-METHORPHAN HB 10 ML UNIT-DOSE CUPS PO PRN (15:41)
[2017-12-13] MEDS ORDERED: MAGNESIUM HYDROX 2400MG/30ML ORAL SUSPENSION 30 ML CUP PO PRN (15:41)
[2017-12-13] MEDS ORDERED: LOPERAMIDE HCL 2 MG CAPSULE PO PRN (15:41)
[2017-12-13] MEDS ORDERED: NICOTINE POLACRILEX 2 MG GUM BUC PRN (15:41)
[2017-12-13] MEDS ORDERED: hydrOXYzine PAMOATE 50 MG CAPSULE (FP) PO PRN (15:41)
[2017-12-13] MEDS ORDERED: MENTHOL/PHENOL 1 EACH UD MM PRN (15:41)
[2017-12-13] MEDS ORDERED: P-EPHED 60MG/TRIPROLIDI 2.5MG TABLET PO PRN (15:41)
[2017-12-13] MEDS ORDERED: MAGNESIUM CITRATE 300 ML BOTTLE PO PRN (15:41)
--- NOTE | 2017-12-13 15:47 | HP ---
ARGELIA TRAORE Rehab Assess/Revision - Admission History Admitted to Rehab from: [facility] [place] - Vital signs Vital Signs: Vital Signs Period Temp Pulse Resp BP Sys/Canseco Pulse Ox Last 24 Hr 98.0 F 92 18 114/69 - Findings Detox History & Physical reviewed: Yes Concur with findings: Yes Inpatient Rehab Admission - Initial Determination Are CD services needed?: Yes Free of communicable disease: Yes Not in need of hospitalization: Yes - Rehab Admission Criteria Previous failed treatment: Yes Poor recovery environment: Yes Comorbidities: Yes Lacks judgement: Yes Patient is meeting Inpatient Rehab admission criteria:: Yes
[2017-12-13] MEDS ORDERED: BACITRACIN 0.9 GM PACKET TP SCH (16:30)
[2017-12-13] MEDS ORDERED: BACITRACIN 15 GM TUBE TOPICAL OINTMENT TP SCH (16:30)
[2017-12-13] MEDS: THIAMINE HCL 100 MG TABLET (FP) PO SCH (21:03)
[2017-12-13] MEDS: LATANOPROST 0.005% OPHTH SOLN 2.5ML BOTTLE OD SCH (21:03)
[2017-12-13] MEDS: QUEtiapine FUMARATE 100 MG TABLET (FP) PO SCH (21:03)
[2017-12-13] MEDS: MELATONIN 5 MG TABLETS PO PRN (21:04)
[2017-12-13] MEDS ORDERED: SUVOREXANT 10 MG TABLET PO PRN (22:00)
[2017-12-14] MEDS: PRENATAL VITAMINS W/ FOLIC ACID TABLET (FP) PO SCH (10:12)
[2017-12-14] MEDS: PANTOPRAZOLE 20 MG TABLET (FP) PO SCH (10:12)
[2017-12-14] MEDS: CLOPIDOGREL BISULFATE 75 MG TABLET (FP) PO SCH (10:12)
[2017-12-14] MEDS: TAMSULOSIN HCL 0.4 MG CAP PO SCH (10:12)
[2017-12-14] MEDS: BACITRACIN 0.9 GM PACKET TP SCH (10:14)
[2017-12-14] MEDS: QUEtiapine FUMARATE 100 MG TABLET (FP) PO SCH (21:08)
[2017-12-14] MEDS: LATANOPROST 0.005% OPHTH SOLN 2.5ML BOTTLE OD SCH (21:08)
[2017-12-14] MEDS: THIAMINE HCL 100 MG TABLET (FP) PO SCH (21:08)
[2017-12-14] MEDS: MAG HYDROX/AL HYDROX/SIMETH 30 ML UNIT-DOSE CUP PO PRN (21:12)
[2017-12-15] MEDS: TAMSULOSIN HCL 0.4 MG CAP PO SCH (10:18)
[2017-12-15] MEDS: PRENATAL VITAMINS W/ FOLIC ACID TABLET (FP) PO SCH (10:18)
[2017-12-15] MEDS: PANTOPRAZOLE 20 MG TABLET (FP) PO SCH (10:18)
[2017-12-15] MEDS: BACITRACIN 0.9 GM PACKET TP SCH (10:18)
[2017-12-15] MEDS: CLOPIDOGREL BISULFATE 75 MG TABLET (FP) PO SCH (10:18)
[2017-12-15] MEDS: MAG HYDROX/AL HYDROX/SIMETH 30 ML UNIT-DOSE CUP PO PRN ×2 (10:21→21:09)
[2017-12-15] MEDS ORDERED: PNEUMOC 13-VAL CONJ-DIP CRM/PF 0.5 ML DISP.SYRIN IM ONE (12:00)
[2017-12-15] MEDS ORDERED: PNEUMOCOCCAL 23 VACCINE 0.5 ML VIAL IM ONE (12:00)
[2017-12-15] MEDS ORDERED: PT OWN MED DRAWER 7, Y5N ONE (19:49)
[2017-12-15] MEDS: QUEtiapine FUMARATE 100 MG TABLET (FP) PO SCH (21:08)
[2017-12-15] MEDS: THIAMINE HCL 100 MG TABLET (FP) PO SCH (21:08)
[2017-12-15] MEDS: MELATONIN 5 MG TABLETS PO PRN (21:08)
[2017-12-15] MEDS: LATANOPROST 0.005% OPHTH SOLN 2.5ML BOTTLE OD SCH (21:08)
[2017-12-16] MEDS: PRENATAL VITAMINS W/ FOLIC ACID TABLET (FP) PO SCH (10:27)
[2017-12-16] MEDS: BACITRACIN 0.9 GM PACKET TP SCH (10:27)
[2017-12-16] MEDS: MAG HYDROX/AL HYDROX/SIMETH 30 ML UNIT-DOSE CUP PO PRN ×2 (10:27→16:33)
[2017-12-16] MEDS: TAMSULOSIN HCL 0.4 MG CAP PO SCH (10:27)
[2017-12-16] MEDS: PANTOPRAZOLE 20 MG TABLET (FP) PO SCH (10:28)
[2017-12-16] MEDS: CLOPIDOGREL BISULFATE 75 MG TABLET (FP) PO SCH (10:28)
[2017-12-16] MEDS: THIAMINE HCL 100 MG TABLET (FP) PO SCH (21:09)
[2017-12-16] MEDS: QUEtiapine FUMARATE 100 MG TABLET (FP) PO SCH (21:09)
[2017-12-16] MEDS: LATANOPROST 0.005% OPHTH SOLN 2.5ML BOTTLE OD SCH (22:31)
[2017-12-17] MEDS: TAMSULOSIN HCL 0.4 MG CAP PO SCH ×2 (06:16→09:55)
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
[2017-12-17] MEDS: BACITRACIN 0.9 GM PACKET TP SCH (09:55)
[2017-12-17] MEDS: PRENATAL VITAMINS W/ FOLIC ACID TABLET (FP) PO SCH (09:55)
[2017-12-17] MEDS: PANTOPRAZOLE 20 MG TABLET (FP) PO SCH (09:55)
[2017-12-17] MEDS: CLOPIDOGREL BISULFATE 75 MG TABLET (FP) PO SCH (09:55)
[2017-12-17] MEDS: FLUoxetine HCL 20 MG CAPSULE (FP) PO SCH (11:30)
[2017-12-17] MEDS ORDERED: PANTOPRAZOLE 20 MG TABLET (FP) PO SCH (12:11)
[2017-12-17] MEDS ORDERED: QUEtiapine FUMARATE 100 MG TABLET (FP) PO SCH (22:00)
[2017-12-17] MEDS: THIAMINE HCL 100 MG TABLET (FP) PO SCH (22:02)
[2017-12-17] MEDS: QUEtiapine FUMARATE 100 MG TABLET (FP) PO SCH (22:03)
[2017-12-17] MEDS: LATANOPROST 0.005% OPHTH SOLN 2.5ML BOTTLE OD SCH (22:04)
[2017-12-18] MEDS: TAMSULOSIN HCL 0.4 MG CAP PO SCH (06:23)
[2017-12-18] MEDS: PRENATAL VITAMINS W/ FOLIC ACID TABLET (FP) PO SCH (10:11)
[2017-12-18] MEDS: FLUoxetine HCL 20 MG CAPSULE (FP) PO SCH (10:11)
[2017-12-18] MEDS: RANITIDINE HCL 150 MG TABLET (FP) PO SCH ×2 (10:11→21:11)
[2017-12-18] MEDS: CLOPIDOGREL BISULFATE 75 MG TABLET (FP) PO SCH (10:11)
[2017-12-18] MEDS: BACITRACIN 0.9 GM PACKET TP SCH (10:11)
[2017-12-18] MEDS: THIAMINE HCL 100 MG TABLET (FP) PO SCH (21:11)
[2017-12-18] MEDS: QUEtiapine FUMARATE 100 MG TABLET (FP) PO SCH (21:11)
[2017-12-18] MEDS: LATANOPROST 0.005% OPHTH SOLN 2.5ML BOTTLE OD SCH (21:11)
[2017-12-19] MEDS: TAMSULOSIN HCL 0.4 MG CAP PO SCH (06:14)
[2017-12-19] MEDS: MAG HYDROX/AL HYDROX/SIMETH 30 ML UNIT-DOSE CUP PO PRN (06:15)
[2017-12-19] MEDS: FLUoxetine HCL 20 MG CAPSULE (FP) PO SCH (10:33)
[2017-12-19] MEDS: CLOPIDOGREL BISULFATE 75 MG TABLET (FP) PO SCH (10:33)
[2017-12-19] MEDS: RANITIDINE HCL 150 MG TABLET (FP) PO SCH ×2 (10:33→21:04)
[2017-12-19] MEDS: PRENATAL VITAMINS W/ FOLIC ACID TABLET (FP) PO SCH (10:33)
[2017-12-19] MEDS: THIAMINE HCL 100 MG TABLET (FP) PO SCH (21:04)
[2017-12-19] MEDS: QUEtiapine FUMARATE 100 MG TABLET (FP) PO SCH (21:04)
[2017-12-19] MEDS: LATANOPROST 0.005% OPHTH SOLN 2.5ML BOTTLE OD SCH (22:12)
[2017-12-20] MEDS: TAMSULOSIN HCL 0.4 MG CAP PO SCH (06:20)
[2017-12-20] MEDS: MAG HYDROX/AL HYDROX/SIMETH 30 ML UNIT-DOSE CUP PO PRN (06:21)
[2017-12-20] MEDS: FLUoxetine HCL 20 MG CAPSULE (FP) PO SCH (10:18)
[2017-12-20] MEDS: PRENATAL VITAMINS W/ FOLIC ACID TABLET (FP) PO SCH (10:18)
[2017-12-20] MEDS: CLOPIDOGREL BISULFATE 75 MG TABLET (FP) PO SCH (10:18)
[2017-12-20] MEDS: RANITIDINE HCL 150 MG TABLET (FP) PO SCH ×2 (10:18→21:54)
[2017-12-20] MEDS: ACETAMINOPHEN 325 MG TABLET (FP) PO PRN (14:20)
[2017-12-20] MEDS ORDERED: PT OWN MED DRAWER 7, Y5N ONE (20:54)
[2017-12-20] MEDS: LATANOPROST 0.005% OPHTH SOLN 2.5ML BOTTLE OD SCH (21:53)
[2017-12-20] MEDS: THIAMINE HCL 100 MG TABLET (FP) PO SCH (21:54)
[2017-12-20] MEDS: QUEtiapine FUMARATE 100 MG TABLET (FP) PO SCH (21:54)
[2017-12-21] MEDS: MAG HYDROX/AL HYDROX/SIMETH 30 ML UNIT-DOSE CUP PO PRN (06:17)
[2017-12-21] MEDS: TAMSULOSIN HCL 0.4 MG CAP PO SCH (06:17)
[2017-12-21] MEDS: PRENATAL VITAMINS W/ FOLIC ACID TABLET (FP) PO SCH (10:12)
[2017-12-21] MEDS: FLUoxetine HCL 20 MG CAPSULE (FP) PO SCH (10:12)
[2017-12-21] MEDS: RANITIDINE HCL 150 MG TABLET (FP) PO SCH ×2 (10:12→21:34)
[2017-12-21] MEDS: CLOPIDOGREL BISULFATE 75 MG TABLET (FP) PO SCH (10:12)
[2017-12-21] MEDS: ACETAMINOPHEN 325 MG TABLET (FP) PO PRN (10:13)
[2017-12-21] MEDS: THIAMINE HCL 100 MG TABLET (FP) PO SCH (21:34)
[2017-12-21] MEDS: QUEtiapine FUMARATE 100 MG TABLET (FP) PO SCH (21:34)
[2017-12-21] MEDS: LATANOPROST 0.005% OPHTH SOLN 2.5ML BOTTLE OD SCH (21:38)
[2017-12-22] MEDS: TAMSULOSIN HCL 0.4 MG CAP PO SCH (06:24)
[2017-12-22] MEDS: ACETAMINOPHEN 325 MG TABLET (FP) PO PRN ×3 (06:25→14:34)
[2017-12-22] MEDS: FLUoxetine HCL 20 MG CAPSULE (FP) PO SCH (10:40)
[2017-12-22] MEDS: PRENATAL VITAMINS W/ FOLIC ACID TABLET (FP) PO SCH (10:40)
[2017-12-22] MEDS: CLOPIDOGREL BISULFATE 75 MG TABLET (FP) PO SCH (10:40)
[2017-12-22] MEDS: RANITIDINE HCL 150 MG TABLET (FP) PO SCH ×2 (10:40→21:32)
[2017-12-22] MEDS: QUEtiapine FUMARATE 100 MG TABLET (FP) PO SCH (21:32)
[2017-12-22] MEDS: LATANOPROST 0.005% OPHTH SOLN 2.5ML BOTTLE OD SCH (21:32)
[2017-12-22] MEDS: THIAMINE HCL 100 MG TABLET (FP) PO SCH (21:32)
[2017-12-22] MEDS: MELATONIN 5 MG TABLETS PO PRN (21:32)
[2017-12-23] MEDS: TAMSULOSIN HCL 0.4 MG CAP PO SCH (06:16)
[2017-12-23] MEDS: FLUoxetine HCL 20 MG CAPSULE (FP) PO SCH (10:07)
[2017-12-23] MEDS: CLOPIDOGREL BISULFATE 75 MG TABLET (FP) PO SCH (10:07)
[2017-12-23] MEDS: RANITIDINE HCL 150 MG TABLET (FP) PO SCH ×2 (10:07→21:21)
[2017-12-23] MEDS: PRENATAL VITAMINS W/ FOLIC ACID TABLET (FP) PO SCH (10:07)
[2017-12-23] MEDS: ACETAMINOPHEN 325 MG TABLET (FP) PO PRN (10:08)
[2017-12-23] MEDS: QUEtiapine FUMARATE 100 MG TABLET (FP) PO SCH (21:21)
[2017-12-23] MEDS: THIAMINE HCL 100 MG TABLET (FP) PO SCH (21:21)
[2017-12-23] MEDS: LATANOPROST 0.005% OPHTH SOLN 2.5ML BOTTLE OD SCH (21:22)
[2017-12-24] MEDS: TAMSULOSIN HCL 0.4 MG CAP PO SCH (06:13)
[2017-12-24] MEDS: PRENATAL VITAMINS W/ FOLIC ACID TABLET (FP) PO SCH (10:24)
[2017-12-24] MEDS: CLOPIDOGREL BISULFATE 75 MG TABLET (FP) PO SCH (10:24)
[2017-12-24] MEDS: RANITIDINE HCL 150 MG TABLET (FP) PO SCH ×2 (10:24→22:04)
[2017-12-24] MEDS: FLUoxetine HCL 20 MG CAPSULE (FP) PO SCH (10:24)
[2017-12-24] MEDS: ACETAMINOPHEN 325 MG TABLET (FP) PO PRN (14:32)
[2017-12-24] MEDS: MELATONIN 5 MG TABLETS PO PRN (22:04)
[2017-12-24] MEDS: QUEtiapine FUMARATE 100 MG TABLET (FP) PO SCH (22:04)
[2017-12-24] MEDS: THIAMINE HCL 100 MG TABLET (FP) PO SCH (22:04)
[2017-12-24] MEDS: LATANOPROST 0.005% OPHTH SOLN 2.5ML BOTTLE OD SCH (22:05)
[2017-12-25] MEDS: TAMSULOSIN HCL 0.4 MG CAP PO SCH (06:33)
[2017-12-25] MEDS: CLOPIDOGREL BISULFATE 75 MG TABLET (FP) PO SCH (10:21)
[2017-12-25] MEDS: PRENATAL VITAMINS W/ FOLIC ACID TABLET (FP) PO SCH (10:21)
[2017-12-25] MEDS: FLUoxetine HCL 20 MG CAPSULE (FP) PO SCH (10:22)
[2017-12-25] MEDS: RANITIDINE HCL 150 MG TABLET (FP) PO SCH ×2 (10:22→21:37)
[2017-12-25] MEDS: THIAMINE HCL 100 MG TABLET (FP) PO SCH (21:37)
[2017-12-25] MEDS: MELATONIN 5 MG TABLETS PO PRN (21:37)
[2017-12-25] MEDS: QUEtiapine FUMARATE 100 MG TABLET (FP) PO SCH (21:37)
[2017-12-25] MEDS: LATANOPROST 0.005% OPHTH SOLN 2.5ML BOTTLE OD SCH (21:38)
[2017-12-26] MEDS: TAMSULOSIN HCL 0.4 MG CAP PO SCH (06:19)
[2017-12-26] MEDS: ACETAMINOPHEN 325 MG TABLET (FP) PO PRN ×2 (06:20→21:39)
[2017-12-26] MEDS: FLUoxetine HCL 20 MG CAPSULE (FP) PO SCH (10:42)
[2017-12-26] MEDS: CLOPIDOGREL BISULFATE 75 MG TABLET (FP) PO SCH (10:42)
[2017-12-26] MEDS: RANITIDINE HCL 150 MG TABLET (FP) PO SCH ×2 (10:42→21:37)
[2017-12-26] MEDS: PRENATAL VITAMINS W/ FOLIC ACID TABLET (FP) PO SCH (10:42)
[2017-12-26] MEDS: LATANOPROST 0.005% OPHTH SOLN 2.5ML BOTTLE OD SCH (21:37)
[2017-12-26] MEDS: QUEtiapine FUMARATE 100 MG TABLET (FP) PO SCH (21:37)
[2017-12-26] MEDS: THIAMINE HCL 100 MG TABLET (FP) PO SCH (21:37)
[2017-12-26] MEDS: MELATONIN 5 MG TABLETS PO PRN (21:38)
[2017-12-26] MEDS ORDERED: ACETAMINOPHEN 325 MG TABLET (FP) ONE (21:39)
[2017-12-27] MEDS: TAMSULOSIN HCL 0.4 MG CAP PO SCH (05:58)
--- NOTE | 2017-12-27 06:39 | PN ---
Psychiatric Progress Note Vital Signs: Vital Signs Period Temp Pulse Resp BP Sys/Canseco Pulse Ox Last 24 Hr 98.2 F 70-80 -18 106-115/62-78 Date of Session: 12/27/17 Chief Complaint:: Discharge Note HPI: Patient addressing Alcohol and Cocaine Dependence comorbid with Nicotine Dependence, MDD, Posttraumatic Stress Disorder and Substance-Induced Sleep Disorder ROS: Asthma, HTN, BPH were medically managed Current Medications: Active Medications Generic Name Dose Route Start Last Admin Trade Name Freq PRN Reason Stop Dose Admin Acetaminophen 650 mg 12/13/17 15:41 12/26/17 21:39 Tylenol - PO 650 mg Q4H PRN Administration FEVER Al Hydroxide/Mg Hydroxide 30 ml 12/13/17 15:41 12/21/17 06:17 Mylanta Oral Suspension - PO 30 ml Q6H PRN Administration DYSPEPSIA Clopidogrel Bisulfate 75 mg 12/14/17 10:00 12/26/17 10:42 Plavix - PO 75 mg DAILY MARCELINO Administration Eucalyptus/Menthol/Phenol/Sorbitol 1 each 12/13/17 15:41 Cepastat Lozenge - MM Q4H PRN SORE THROAT Fluoxetine HCl 20 mg 12/17/17 11:00 12/26/17 10:42 Prozac - PO 20 mg DAILY MARCELINO Administration Guaifenesin 10 ml 12/13/17 15:41 Robitussin Dm - PO Q6H PRN COUGH Hydroxyzine Pamoate 50 mg 12/13/17 15:41 Vistaril - PO Q4H PRN AGITATION Latanoprost 1 drop 12/13/17 22:00 12/26/17 21:37 Xalatan 0.005% Eye Drops - OD 1 drop HS MARCELINO Administration Loperamide HCl 4 mg 12/13/17 15:41 Imodium - PO Q6H PRN DIARRHEA Magnesium Citrate 300 ml 12/13/17 15:41 Citroma - PO Q48H PRN CONSTIPATION Magnesium Hydroxide 30 ml 12/13/17 15:41 Milk Of Magnesia - PO DAILY PRN CONSTIPATION Melatonin 5 mg 12/13/17 22:00 12/26/17 21:38 Melatonin PO 5 mg HS PRN Administration INSOMNIA Metoprolol Succinate 50 mg 12/14/17 10:00 12/26/17 10:42 Toprol Xl - PO 50 mg DAILY MARCELINO Administration Nicotine Polacrilex 2 mg 12/13/17 15:41 Nicorette Gum - BUC Q2H PRN NICOTINE REPLACEMENT RX Multivit/Folic Acid/Iron 1 tab 12/14/17 10:00 12/26/17 10:42 Vitamins (Sjr) - PO 1 tab DAILY MARCELINO Administration Pseudoephedrine/Triprolidine 1 combo 12/13/17 15:41 Actifed - PO TID PRN NASAL CONGESTION Quetiapine Fumarate 100 mg 12/13/17 22:00 12/26/17 21:37 Seroquel - PO 100 mg HS MARCELINO Administration Ranitidine HCl 150 mg 12/18/17 10:00 12/26/17 21:37 Zantac - PO 150 mg BID MARCELINO Administration Tamsulosin HCl 0.4 mg 12/18/17 06:00 12/27/17 05:58 Flomax - PO 0.4 mg DAILY@0600 MARCELINO Administration Thiamine HCl 100 mg 12/13/17 22:00 12/26/17 21:37 Vitamin B1 - PO 100 mg HS MARCELINO Administration Current Side Effect: No Lab tests ordered: Yes Lab tests reviewed: Yes Provider note:: Patient has completed this program today. He has met his treatment goals and will continue to address his issues in outpatient treatment at [facility] at [address] [place] [address]. Told technical writer that from his participation in this program, he has learned the importance of surrounding himself with a sober support network in order to maintain abstinence. He responded well to prozac 20 mg po daily and Seroquel 100 mg po HS. Scripts for 30 days supply of these medications are electronically transmitted to [facility] at [address] [place] [id number]. He is stable for discharge today Total face to face time:: 35 Mental Status Exam - Mental Status Exam Alert and Oriented to: Time, Place, Person Cognitive Function: Fair Patient Appearance: Well Groomed Mood: Hopeful, Euthymic Affect: Appropriate Patient Behavior: Cooperative Speech Pattern: Clear Voice Loudness: Normal Thought Process: Intact, Goal Oriented Thought Disorder: Not Present Hallucinations: Denies Suicidal Ideation: Denies Homicidal Ideation: Denies Insight/Judgement: Fair Sleep: Fair Appetite: Good Muscle strength/Tone: Normal Gait/Station: Normal Psychiatric Treatment Plan - Problem List (1) Alcohol dependence Current Visit: No (2) Cocaine dependence Current Visit: Yes (3) Nicotine dependence Current Visit: No Qualifiers: Nicotine product type: cigarettes Substance use status: uncomplicated Qualified Code(s): F17.210 - Nicotine dependence, cigarettes, uncomplicated (4) MDD (major depressive disorder) Current Visit: No (5) PTSD (post-traumatic stress disorder) Current Visit: Yes (6) Substance-induced sleep disorder Current Visit: Yes (7) Asthma Current Visit: No Qualifiers: Asthma severity: unspecified severity Asthma persistence: unspecified Asthma complication type: unspecified Qualified Code(s): J45.909 - Unspecified asthma, uncomplicated (8) BPH (benign prostatic hyperplasia) Current Visit: No Qualifiers: Lower urinary tract symptom presence: symptoms present Lower urinary tract symptom detail: unspecified Qualified Code(s): N40.1 - Benign prostatic hyperplasia with lower urinary tract symptoms (9) HTN (hypertension) Current Visit: Yes Initial treatment plan: Patient is discharged today and referred to [facility] for outpatient treatment
[2017-12-27 07:00] VITALS: BP 141/82; PULSE 65; TEMP 97.7
[2017-12-27] MEDS ORDERED: PT OWN MED DRAWER 7, Y5N ONE (09:16)
[2017-12-27] MEDS: CLOPIDOGREL BISULFATE 75 MG TABLET (FP) PO SCH (09:17)
[2017-12-27] MEDS: PRENATAL VITAMINS W/ FOLIC ACID TABLET (FP) PO SCH (09:17)
[2017-12-27] MEDS: FLUoxetine HCL 20 MG CAPSULE (FP) PO SCH (09:17)
[2017-12-27] MEDS: RANITIDINE HCL 150 MG TABLET (FP) PO SCH (09:17)
--- NOTE | 2017-12-27 10:44 | PN ---
[facility] Progress Note Note: PT DISCHARGED TODAY. ALERT O X 3. NAD. PT REPORTS HE IS GOING TO [facility] FOR AFTERCARE AND HAS PRIMARY CARE AT [facility] FOR MEDICAL MANAGEMENT. RX SENT TO PT'S PHARMACY FOR PICKUP. AFTER DISCHARGE. Vital Signs 12/27/17 12/27/17 03:30 06:59 Temperature 97.7 F Pulse Rate 65 Respiratory 18 18 Rate Blood Pressure 141/82 NAD PLAN:FOLLOW UP WITH AFTERCARE DISCHARGE PLAN SCHEDULED.
== END 2017-12-27 10:25 | disposition home or self-care (01) | DRG 895 ==
LOC: YASAS 13:14 → Y3W 13:16
PROVIDERS: ADMIT Psychiatry & Neurology Psychiatry; ATTEND Psychiatry & Neurology Psychiatry
PROC: HZ42ZZZ Group Counseling for Substance Abuse Treatment, Cognitive-Behavioral (ICD-10-PCS; principal; 2017-12-13)
DX: F10.20 Alcohol dependence, uncomplicated (principal); F14.20 Cocaine dependence, uncomplicated; F33.9 Major depressive disorder, recurrent, unspecified; F19.282 Other psychoactive substance dependence with psychoactive substance-induced sleep disorder; F17.210 Nicotine dependence, cigarettes, uncomplicated; F43.10 Post-traumatic stress disorder, unspecified; I10 Essential (primary) hypertension; J45.909 Unspecified asthma, uncomplicated; N40.0 Benign prostatic hyperplasia without lower urinary tract symptoms
CPT/HCPCS: 90732; G0009